=== PATIENT | female | born 1965 | race Caucasian/White ===

== ENCOUNTER 2016-08-17 09:19 | Inpatient (IN) | payer OTHER ==
[~2016-08-17] VITALS: Ht 165.1 cm; Wt 98.0 kg
[~2016-08-17 09:19] MED LIST: DIGO0.2570 PO; FLEC50TA15 PO; FURO20TA3 PO; LAC30LQ PO; LEV500T PO; SERT25TA84 PO; SPIR25TA88 PO; ZOLP10TA PO
[2016-08-17] MEDS ORDERED: FUROSEMIDE 40 MG/4 ML VIAL IV ONE (09:30)
[2016-08-17] MEDS ORDERED: LORazepam 2MG/ML-1ML VIAL IV ONE (09:30)
[2016-08-17] MEDS ORDERED: LEVOFLOXACIN 500MG 100 ML IV ONE (09:30)
[2016-08-17 09:39] VITALS: BP 122/63
[2016-08-17] MEDS ORDERED: ONDANSETRON HCL 4 MG/2 ML VIAL ONE (09:40)
[2016-08-17 09:49] LABS: Allen Test Modified; Base Excess -0.8 mmol/L (-2.0-2.0); Blood 02Sat 96.6 % (96-100); Blood COHb 0.3 % (0.5-1.5); Blood MetHb 0.3 % (0.0-1.5); HCO3 24.6 mmol/L (22-26.0); HHb 3.4 % (0.0-5.0); MODE MASK - BIPAP; PCO2 43.6 mmHg (35.0-45.0); PCO2(T) 43.6 mmHg (35.0-45.0); PIP 12; PO2 107.4 mmHg (80.0-100.0); PO2(T) 107.4 mmHg (80.0-100.0); Pressure Support 7; Sample Type Arterial; pH 7.369 (7.350-7.450)
[2016-08-17 09:53] LABS: Basophils # (auto) 0 uL; Basophils % (auto) 0.3 % (0.0-2.0); CONDITION Y; DEFINITIVE SEE PRINTOUT; Eosinophils # (auto) 0.2 uL; Eosinophils % (auto) 1.8 % (0.0-7.0); Hematocrit 28.5 % (36.0-46.0); Hemoglobin 9.4 g/dL (12.2-16.2); Lymphocytes # (auto) 1.9 uL; Lymphocytes % (auto) 19.3 % (10.0-50.0); Mean Corpuscular Hemoglobin 30.9 pg (28.0-32.0); Mean Corpuscular Hgb Conc. 33.1 g/dL (32.0-36.0); Mean Corpuscular Volume 93.5 fL (80.0-100.0); Mean Platelet Volume 7.7 fL (7.4-10.4); Monocytes # (auto) 0.3 uL; Monocytes % (auto) 2.8 % (0.0-12.0); Neutrophils # (auto) 7.5 uL; Neutrophils % (auto) 75.8 % (37.0-80.0); Platelet Count (auto) 170 10^3/uL (140-450); Red Cell Distribution Width 21.1 % (11.6-16.0); White Blood Cell 9.9 10^3/uL (4.4-10.8)
[2016-08-17 10:15] LABS: Albumin 2.6 g/dL (3.4-5.0); Anion Gap 17 (5-15); Aspartate Aminotransferase 93 U/L (15-37); BUN/Creatinine Ratio 8.6; Blood Urea Nitrogen 14 mg/dL (7-18); Calcium 7.3 mg/dL (8.5-10.1); Carbon Dioxide 23 mmol/L (21-32); Chloride 104 mmol/L (98-107); GFR African American 43 mL/min; GFR Non-African American 35 mL/min; Glucose 88 mg/dL (74-106); Magnesium 1.5 mg/dL (1.6-2.6); Potassium 3.6 mmol/L (3.5-5.1); Sodium 144 mmol/L (136-145)
[2016-08-17] MEDS ORDERED: SODIUM CHLORIDE 0.9% 500 ML IV ONE ×2 (10:15→11:00)
[2016-08-17 10:20] LABS: Alkaline Phosphatase 135 U/L (45-117); Bilirubin, Total 1.4 mg/dL (0.2-1.0)
[2016-08-17 10:21] LABS: B-Type Natriuretic Peptide 61.42 pg/mL (0-100); Temperature: 24.1 C (20.0-25.0)
[2016-08-17 10:23] LABS: REFLEX LACTIC ACID YES OR NO YES
[2016-08-17] MEDS ORDERED: MORPHINE SULF INJ 2 MG/ML SYRINGE 1ML IV PRN (11:00)
[2016-08-17] MEDS ORDERED: ALBUTEROL SULF 2.5 MG/0.5ML(0.5%) NEB SOLN NEB PRN (11:00)
[2016-08-17] MEDS ORDERED: NITROGLYCERIN 0.4 MG SL TAB SL PRN (11:00)
[2016-08-17] MEDS ORDERED: PROMETHAZINE HCL 25 MG/ML 1ML IV PRN (11:00)
[2016-08-17] MEDS ORDERED: CARVEDILOL 3.125 MG TAB PO ONE (11:15)
[2016-08-17] MEDS ORDERED: METOPROLOL TARTRATE 1MG/1ML-5ML VIAL IV ONE (11:15)
[2016-08-17 11:23] LABS: INR 1.23 (0.9-1.15)
[2016-08-17] MEDS ORDERED: DIGOXIN 0.25 MG TAB PO ONE (11:30)
[2016-08-17] MEDS: cefTRIAXone 1GM/50ML D5W 50 ML IV SCH (11:30)
[2016-08-17 11:43] LABS: Prothrombin Time 13.4 sec (9.37-12.3)
[2016-08-17] MEDS: ALBUTEROL SULF 2.5 MG/0.5ML(0.5%) NEB SOLN NEB SCH ×2 (12:05→18:00)
[2016-08-17] MEDS: IPRATROPIUM BROM 0.5 MG/2.5ML INH SOL NEB SCH ×2 (12:05→18:00)
[2016-08-17] MEDS: PANTOPRAZOLE 40 MG TAB PO SCH (12:35)
[2016-08-17] MEDS: LACTULOSE 20Gm/30ML SOLN PO SCH ×2 (12:35→18:00)
[2016-08-17] MEDS: SODIUM CHLORIDE 0.9% 1,000 ML IV SCH ×2 (12:52→21:03)
[2016-08-17] MEDS: MORPHINE SULF INJ 2 MG/ML SYRINGE 1ML IV PRN (12:55)
[2016-08-17] MEDS ORDERED: ACETAMINOPHEN 325 MG TAB PO ONE (12:59)
[2016-08-17] MEDS ORDERED: ACETAMINOPHEN 325 MG TAB PO PRN (13:00)
[2016-08-17] MEDS ORDERED: ASPirin 81 mg TAB PO ONE (14:15)
[2016-08-17] MEDS ORDERED: ENOXAPARIN SOD 80 MG/0.8ML SYRINGE SC ONE (14:15)
[2016-08-17] MEDS ORDERED: DIGOXIN (250MCG/ML) 2 ML AMPULE IV ONE (14:15)
[2016-08-17] MEDS ORDERED: ATORVASTATIN 20 MG TAB PO ONE (14:15)
[2016-08-17] MEDS: AZITHROMYCIN 500MG/D5W 250ML 250 ML IV SCH (14:18)
[2016-08-17] MEDS: CLINDAMYCIN 600MG IV 50 ML IV SCH ×2 (16:03→22:38)
[2016-08-17 16:18] VITALS: BP 90/49
[2016-08-17] MEDS ORDERED: PATIENTS OWN MEDICATION (Zolpidem Tartrate (Ambien) 1 TAB) PO SCH ×2 (18:00)
[2016-08-17] MEDS ORDERED: MAGNESIUM SULFATE 1GM/100ML 100 ML IV ONE (19:30)
[2016-08-17] MEDS: ATORVASTATIN 20 MG TAB PO SCH (22:00)
[2016-08-17] MEDS: CARVEDILOL 3.125 MG TAB PO SCH (22:00)
[2016-08-17] MEDS: ENOXAPARIN SOD 80 MG/0.8ML SYRINGE SC SCH (22:00)
[2016-08-17] MEDS: FLECAINIDE ACETATE 50 MG TAB PO SCH (22:00)
[2016-08-18] VITALS (15 sets, daily range): BP systolic 100–125; BP diastolic 48–74
[2016-08-18] MEDS: ALBUTEROL SULF 2.5 MG/0.5ML(0.5%) NEB SOLN NEB SCH ×4 (01:57→18:00)
[2016-08-18] MEDS: IPRATROPIUM BROM 0.5 MG/2.5ML INH SOL NEB SCH ×4 (01:57→18:00)
[2016-08-18 04:08] LABS: CONDITION Y; DEFINITIVE SEE PRINTOUT; Hematocrit 23.7 % (36.0-46.0); Mean Corpuscular Hemoglobin 31.4 pg (28.0-32.0); Mean Corpuscular Hgb Conc. 33.6 g/dL (32.0-36.0); Mean Corpuscular Volume 93.4 fL (80.0-100.0); Mean Platelet Volume 7.9 fL (7.4-10.4); Platelet Count (auto) 111 10^3/uL (140-450); SUSPECT SEE PRINTOUT; White Blood Cell 17.7 10^3/uL (4.4-10.8)
[2016-08-18 04:18] LABS: Red Cell Distribution Width 20.9 % (11.6-16.0)
[2016-08-18 04:19] LABS: Metamyelocytes % 0; Myelocytes % 0; Promyelocytes % 0; Reactive Lymphocytes 0
[2016-08-18 04:36] LABS: Albumin 2.2 g/dL (3.4-5.0); BUN/Creatinine Ratio 10.2; Bilirubin, Total 2.2 mg/dL (0.2-1.0); Calcium 7.3 mg/dL (8.5-10.1); Total Protein 4.9 g/dL (6.4-8.2)
[2016-08-18 05:00] LABS: B-Type Natriuretic Peptide 233.59 pg/mL (0-100)
[2016-08-18 05:04] LABS: Temperature: 22.5 C (20.0-25.0)
[2016-08-18 05:23] LABS: Anisocytosis Slight; Burr Cells FEW; Platelet Estimate Decreased
[2016-08-18] MEDS: CLINDAMYCIN 600MG IV 50 ML IV SCH ×3 (06:16→23:38)
[2016-08-18] MEDS: LACTULOSE 20Gm/30ML SOLN PO SCH ×4 (06:20→18:11)
[2016-08-18] MEDS: SODIUM CHLORIDE 0.9% 1,000 ML IV SCH ×2 (07:00→17:10)
[2016-08-18] MEDS: POTASSIUM CHL 10% (20 MEQ/15ML) ORAL SOLN PO SCH (07:44)
[2016-08-18] MEDS: MORPHINE SULF INJ 2 MG/ML SYRINGE 1ML IV PRN ×2 (08:25→14:17)
[2016-08-18] MEDS: cefTRIAXone 1GM/50ML D5W 50 ML IV SCH (08:25)
[2016-08-18] MEDS: CARVEDILOL 3.125 MG TAB PO SCH ×2 (10:00→23:38)
[2016-08-18] MEDS ORDERED: ASPirin 81 mg TAB PO SCH (10:00)
[2016-08-18] MEDS ORDERED: PATIENTS OWN MEDICATION (Sertraline Hcl (Zoloft) 1 TAB) PO SCH (10:00)
[2016-08-18] MEDS: DIGOXIN 0.25 MG TAB PO SCH (10:16)
[2016-08-18] MEDS: AZITHROMYCIN 500MG/D5W 250ML 250 ML IV SCH (10:16)
[2016-08-18] MEDS: SERTRALINE HCL 50 MG TAB PO SCH (10:16)
[2016-08-18] MEDS: FLECAINIDE ACETATE 50 MG TAB PO SCH (10:16)
[2016-08-18] MEDS: ENOXAPARIN SOD 80 MG/0.8ML SYRINGE SC SCH (10:16)
[2016-08-18] MEDS: PANTOPRAZOLE 40 MG TAB PO SCH (10:16)
[2016-08-18 12:51] LABS: Hematocrit 23.1 % (36.0-46.0); Hemoglobin 7.8 g/dL (12.2-16.2)
[2016-08-18 12:55] LABS: INR 1.64 (0.9-1.15); Partial Thromboplastin Time 38.9 sec (22.64-33.71)
[2016-08-18 21:01] LABS: Hematocrit 28.8 % (36.0-46.0); Hemoglobin 9.6 g/dL (12.2-16.2)
[2016-08-18] MEDS: ATORVASTATIN 20 MG TAB PO SCH (23:39)
[2016-08-19] MEDS: FLECAINIDE ACETATE 50 MG TAB PO SCH ×3 (00:03→21:07)
[2016-08-19] MEDS: LACTULOSE 20Gm/30ML SOLN PO SCH ×4 (00:07→18:00)
[2016-08-19 01:00] LABS: Hematocrit 27.4 % (36.0-46.0)
[2016-08-19] MEDS: MORPHINE SULF INJ 2 MG/ML SYRINGE 1ML IV PRN ×2 (02:34→21:11)
[2016-08-19] MEDS: LORazepam 0.5 MG TAB PO PRN (02:38)
[2016-08-19 03:31] LABS: Basophils # (auto) 0 uL; Basophils % (auto) 0.3 % (0.0-2.0); CONDITION Y; DEFINITIVE SEE PRINTOUT; Eosinophils # (auto) 0.2 uL; Eosinophils % (auto) 1.2 % (0.0-7.0); Hematocrit 27.3 % (36.0-46.0); Hemoglobin 9.1 g/dL (12.2-16.2); Lymphocytes # (auto) 1.8 uL; Lymphocytes % (auto) 11.1 % (10.0-50.0); Mean Corpuscular Hemoglobin 31.2 pg (28.0-32.0); Mean Corpuscular Hgb Conc. 33.5 g/dL (32.0-36.0); Mean Corpuscular Volume 93.1 fL (80.0-100.0); Mean Platelet Volume 8.1 fL (7.4-10.4); Monocytes # (auto) 0.7 uL; Monocytes % (auto) 4.7 % (0.0-12.0); Neutrophils # (auto) 13.1 uL; Neutrophils % (auto) 82.7 % (37.0-80.0); Platelet Count (auto) 124 10^3/uL (140-450); Red Cell Distribution Width 19.9 % (11.6-16.0); White Blood Cell 15.9 10^3/uL (4.4-10.8)
[2016-08-19 03:46] LABS: INR 1.36 (0.9-1.15); Partial Thromboplastin Time 36.1 sec (22.64-33.71)
[2016-08-19 03:47] LABS: Prothrombin Time 14.9 sec (9.37-12.3)
[2016-08-19 03:57] LABS: Albumin 2.3 g/dL (3.4-5.0); BUN/Creatinine Ratio 11.9; Bilirubin, Total 2.3 mg/dL (0.2-1.0); Calcium 7.2 mg/dL (8.5-10.1); Potassium 3.4 mmol/L (3.5-5.1)
[2016-08-19 04:00] VITALS: BP 123/72
[2016-08-19 04:10] VITALS: BP 123/72
[2016-08-19 04:46] LABS: B-Type Natriuretic Peptide 285.05 pg/mL (0-100)
[2016-08-19 04:55] LABS: Temperature: 22.9 C (20.0-25.0)
[2016-08-19] MEDS: ZOLPIDEM TARTRATE 5 MG TAB PO PRN ×2 (05:14→21:10)
[2016-08-19] MEDS: CLINDAMYCIN 600MG IV 50 ML IV SCH ×3 (06:00→21:11)
[2016-08-19] MEDS: SODIUM CHLORIDE 0.9% 1,000 ML IV SCH (06:15)
[2016-08-19] MEDS: IPRATROPIUM BROM 0.5 MG/2.5ML INH SOL NEB SCH ×3 (07:26→18:51)
[2016-08-19] MEDS: ALBUTEROL SULF 2.5 MG/0.5ML(0.5%) NEB SOLN NEB SCH ×3 (07:26→18:51)
[2016-08-19 12:00] VITALS: BP 101/61
[2016-08-19] MEDS: cefTRIAXone 1GM/50ML D5W 50 ML IV SCH (12:23)
[2016-08-19] MEDS: SERTRALINE HCL 50 MG TAB PO SCH (12:24)
[2016-08-19] MEDS: PANTOPRAZOLE 40 MG TAB PO SCH (12:25)
[2016-08-19] MEDS: DIGOXIN 0.25 MG TAB PO SCH (12:25)
[2016-08-19] MEDS: CARVEDILOL 3.125 MG TAB PO SCH ×2 (12:25→21:09)
[2016-08-19] MEDS: AZITHROMYCIN 500MG/D5W 250ML 250 ML IV SCH (12:26)
[2016-08-19] MEDS: POTASSIUM CHL 10% (20 MEQ/15ML) ORAL SOLN PO SCH (12:26)
[2016-08-19 16:00] VITALS: BP 106/62
[2016-08-19 20:00] VITALS: BP 94/54
[2016-08-19] MEDS: ATORVASTATIN 20 MG TAB PO SCH (21:07)
[2016-08-20] VITALS (7 sets, daily range): BP systolic 91–123; BP diastolic 51–87
[2016-08-20] MEDS: IPRATROPIUM BROM 0.5 MG/2.5ML INH SOL NEB SCH ×4 (00:08→18:49)
[2016-08-20] MEDS: ALBUTEROL SULF 2.5 MG/0.5ML(0.5%) NEB SOLN NEB SCH ×4 (00:08→18:49)
[2016-08-20] MEDS: MORPHINE SULF INJ 2 MG/ML SYRINGE 1ML IV PRN ×4 (03:46→18:42)
[2016-08-20 04:55] LABS: Basophils # (auto) 0 uL; Basophils % (auto) 0.3 % (0.0-2.0); CONDITION Y; DEFINITIVE SEE PRINTOUT; Eosinophils # (auto) 0.1 uL; Eosinophils % (auto) 1.3 % (0.0-7.0); Hematocrit 26.9 % (36.0-46.0); Hemoglobin 8.9 g/dL (12.2-16.2); Lymphocytes # (auto) 1.3 uL; Lymphocytes % (auto) 13.7 % (10.0-50.0); Mean Corpuscular Hgb Conc. 33.1 g/dL (32.0-36.0); Mean Corpuscular Volume 93.5 fL (80.0-100.0); Mean Platelet Volume 8.2 fL (7.4-10.4); Monocytes # (auto) 0.6 uL; Monocytes % (auto) 6.5 % (0.0-12.0); Neutrophils # (auto) 7.7 uL; Neutrophils % (auto) 78.2 % (37.0-80.0); Platelet Count (auto) 124 10^3/uL (140-450); Red Cell Distribution Width 19.9 % (11.6-16.0); White Blood Cell 9.8 10^3/uL (4.4-10.8)
[2016-08-20 05:16] LABS: Albumin 2.2 g/dL (3.4-5.0); BUN/Creatinine Ratio 12.2; Calcium 7.6 mg/dL (8.5-10.1)
[2016-08-20 05:19] LABS: Bilirubin, Total 1.2 mg/dL (0.2-1.0); Total Protein 5.2 g/dL (6.4-8.2)
[2016-08-20 05:32] LABS: B-Type Natriuretic Peptide 259.2 pg/mL (0-100)
[2016-08-20 05:36] LABS: Temperature: 22.9 C (20.0-25.0)
[2016-08-20] MEDS: CLINDAMYCIN 600MG IV 50 ML IV SCH (05:50)
[2016-08-20] MEDS: LACTULOSE 20Gm/30ML SOLN PO SCH ×4 (06:00→17:29)
[2016-08-20] MEDS: LORazepam 0.5 MG TAB PO PRN (09:38)
[2016-08-20] MEDS: cefTRIAXone 1GM/50ML D5W 50 ML IV SCH (09:38)
[2016-08-20] MEDS: CARVEDILOL 3.125 MG TAB PO SCH ×2 (09:43→21:49)
[2016-08-20] MEDS: POTASSIUM CHL 10% (20 MEQ/15ML) ORAL SOLN PO SCH (09:51)
[2016-08-20] MEDS: FLECAINIDE ACETATE 50 MG TAB PO SCH ×2 (09:51→21:49)
[2016-08-20] MEDS: DIGOXIN 0.25 MG TAB PO SCH (09:51)
[2016-08-20] MEDS: PANTOPRAZOLE 40 MG TAB PO SCH ×2 (09:51→21:49)
[2016-08-20] MEDS: SERTRALINE HCL 50 MG TAB PO SCH (09:56)
[2016-08-20] MEDS: AZITHROMYCIN 500MG/D5W 250ML 250 ML IV SCH (10:23)
[2016-08-20] MEDS: ALBUMIN 25% 100 ML IV SCH ×2 (12:56→14:13)
[2016-08-20] MEDS ORDERED: BUMETANIDE (0.25MG/ML) 4 ML VIAL IV ONE (14:15)
[2016-08-20] MEDS: RIFAXIMIN 550 MG TAB PO SCH ×2 (14:55→22:00)
[2016-08-20] MEDS: ATORVASTATIN 20 MG TAB PO SCH (21:49)
[2016-08-21] VITALS (11 sets, daily range): BP systolic 92–112; BP diastolic 49–65
[2016-08-21] MEDS: ALBUTEROL SULF 2.5 MG/0.5ML(0.5%) NEB SOLN NEB SCH ×4 (00:36→19:36)
[2016-08-21] MEDS: IPRATROPIUM BROM 0.5 MG/2.5ML INH SOL NEB SCH ×4 (00:37→19:36)
[2016-08-21] MEDS: ZOLPIDEM TARTRATE 5 MG TAB PO PRN (02:34)
[2016-08-21 05:25] LABS: Basophils # (auto) 0 uL; Basophils % (auto) 0.3 % (0.0-2.0); CONDITION Y; DEFINITIVE SEE PRINTOUT; Eosinophils # (auto) 0.1 uL; Eosinophils % (auto) 2.4 % (0.0-7.0); Hematocrit 25.1 % (36.0-46.0); Hemoglobin 8.5 g/dL (12.2-16.2); Lymphocytes # (auto) 1.2 uL; Lymphocytes % (auto) 18.8 % (10.0-50.0); Mean Corpuscular Hemoglobin 31.5 pg (28.0-32.0); Mean Corpuscular Hgb Conc. 33.7 g/dL (32.0-36.0); Mean Corpuscular Volume 93.4 fL (80.0-100.0); Mean Platelet Volume 7.6 fL (7.4-10.4); Monocytes # (auto) 0.5 uL; Monocytes % (auto) 8.5 % (0.0-12.0); Neutrophils # (auto) 4.4 uL; Platelet Count (auto) 115 10^3/uL (140-450); White Blood Cell 6.3 10^3/uL (4.4-10.8)
[2016-08-21 05:27] LABS: Red Cell Distribution Width 20.4 % (11.6-16.0)
[2016-08-21 05:45] LABS: Calcium 7.8 mg/dL (8.5-10.1); Potassium 3.3 mmol/L (3.5-5.1)
[2016-08-21] MEDS: LACTULOSE 20Gm/30ML SOLN PO SCH ×4 (06:00→17:28)
[2016-08-21 06:45] LABS: Platelet Estimate Decreased
[2016-08-21 06:47] LABS: Anisocytosis Slight; Schistocytes FEW
[2016-08-21 06:48] LABS: Ovalocytes FEW
[2016-08-21] MEDS: cefTRIAXone 1GM/50ML D5W 50 ML IV SCH (09:22)
[2016-08-21] MEDS: AZITHROMYCIN 500MG/D5W 250ML 250 ML IV SCH (10:00)
[2016-08-21] MEDS: CARVEDILOL 3.125 MG TAB PO SCH ×2 (10:00→22:35)
[2016-08-21] MEDS ORDERED: POTASSIUM CHL 20 Meq TABLET PO ONE (10:30)
[2016-08-21] MEDS: FLECAINIDE ACETATE 50 MG TAB PO SCH ×2 (10:31→22:35)
[2016-08-21] MEDS: PANTOPRAZOLE 40 MG TAB PO SCH ×2 (10:33→22:35)
[2016-08-21] MEDS: DIGOXIN 0.25 MG TAB PO SCH (10:33)
[2016-08-21] MEDS: SERTRALINE HCL 50 MG TAB PO SCH (10:34)
[2016-08-21] MEDS: RIFAXIMIN 550 MG TAB PO SCH ×2 (10:35→22:35)
[2016-08-21] MEDS: LORazepam 0.5 MG TAB PO PRN ×2 (12:16→22:51)
[2016-08-21] MEDS: traMADol HCL 50 MG TAB PO PRN (17:29)
[2016-08-21] MEDS: ATORVASTATIN 20 MG TAB PO SCH (22:35)
[2016-08-22] VITALS (8 sets, daily range): BP systolic 100–131; BP diastolic 56–74
[2016-08-22] MEDS: ALBUTEROL SULF 2.5 MG/0.5ML(0.5%) NEB SOLN NEB SCH ×4 (00:27→20:19)
[2016-08-22] MEDS: IPRATROPIUM BROM 0.5 MG/2.5ML INH SOL NEB SCH ×4 (00:27→20:19)
[2016-08-22] MEDS: traMADol HCL 50 MG TAB PO PRN ×3 (02:15→18:30)
[2016-08-22] MEDS: ZOLPIDEM TARTRATE 5 MG TAB PO PRN (02:15)
[2016-08-22 05:38] LABS: Basophils # (auto) 0 uL; Basophils % (auto) 0.6 % (0.0-2.0); CONDITION Y; DEFINITIVE SEE PRINTOUT; Eosinophils # (auto) 0.2 uL; Eosinophils % (auto) 2.9 % (0.0-7.0); Hematocrit 27.1 % (36.0-46.0); Lymphocytes # (auto) 1.3 uL; Mean Corpuscular Hemoglobin 30.8 pg (28.0-32.0); Mean Corpuscular Hgb Conc. 33.3 g/dL (32.0-36.0); Mean Corpuscular Volume 92.4 fL (80.0-100.0); Mean Platelet Volume 7.7 fL (7.4-10.4); Monocytes # (auto) 0.6 uL; Monocytes % (auto) 9.8 % (0.0-12.0); Neutrophils # (auto) 4.2 uL; Neutrophils % (auto) 66.7 % (37.0-80.0); Platelet Count (auto) 129 10^3/uL (140-450); White Blood Cell 6.3 10^3/uL (4.4-10.8)
[2016-08-22 05:55] LABS: Red Cell Distribution Width 20.9 % (11.6-16.0)
[2016-08-22 05:56] LABS: Albumin 2.5 g/dL (3.4-5.0); BUN/Creatinine Ratio 13.3; Calcium 7.7 mg/dL (8.5-10.1); Potassium 3.4 mmol/L (3.5-5.1)
[2016-08-22 05:59] LABS: Bilirubin, Total 1.2 mg/dL (0.2-1.0); Total Protein 5.2 g/dL (6.4-8.2)
[2016-08-22] MEDS: LACTULOSE 20Gm/30ML SOLN PO SCH ×4 (06:11→18:29)
[2016-08-22] MEDS: LORazepam 0.5 MG TAB PO PRN (06:13)
[2016-08-22 07:00] LABS: Platelet Estimate Decreased
[2016-08-22 07:01] LABS: Anisocytosis Slight; Ovalocytes FEW; Schistocytes FEW
[2016-08-22] MEDS ORDERED: ALBUMIN 25% 100 ML IV ONE (09:15)
[2016-08-22] MEDS ORDERED: BUMETANIDE 1 MG TAB PO SCH (10:00)
[2016-08-22] MEDS: FLECAINIDE ACETATE 50 MG TAB PO SCH ×2 (10:00→22:36)
[2016-08-22] MEDS: CARVEDILOL 3.125 MG TAB PO SCH ×2 (10:00→22:37)
[2016-08-22] MEDS: cefTRIAXone 1GM/50ML D5W 50 ML IV SCH (10:11)
[2016-08-22] MEDS: AZITHROMYCIN 500MG/D5W 250ML 250 ML IV SCH (10:38)
[2016-08-22] MEDS: POTASSIUM CHL 20 Meq TABLET PO SCH (10:40)
[2016-08-22] MEDS: DIGOXIN 0.25 MG TAB PO SCH (10:40)
[2016-08-22] MEDS: PANTOPRAZOLE 40 MG TAB PO SCH ×2 (10:41→22:36)
[2016-08-22] MEDS: RIFAXIMIN 550 MG TAB PO SCH ×2 (10:42→22:38)
[2016-08-22] MEDS: SERTRALINE HCL 50 MG TAB PO SCH (10:42)
[2016-08-22] MEDS ORDERED: MORPHINE SULFATE 4 MG/ML SYRG IV PRN (14:05)
[2016-08-22] MEDS: SPIRONOLACTONE 25 MG TAB PO SCH (18:30)
[2016-08-22] MEDS: ATORVASTATIN 20 MG TAB PO SCH (22:36)
[2016-08-22] MEDS: MORPHINE SULFATE 4 MG/ML SYRG IV PRN (22:46)
[2016-08-23 05:57] VITALS: BP 117/65
[2016-08-23] MEDS: LACTULOSE 20Gm/30ML SOLN PO SCH ×4 (05:58→18:17)
[2016-08-23] MEDS: SPIRONOLACTONE 25 MG TAB PO SCH ×2 (05:58→18:17)
[2016-08-23 06:18] LABS: BUN/Creatinine Ratio 11.3; Potassium 3.4 mmol/L (3.5-5.1)
[2016-08-23] MEDS: IPRATROPIUM BROM 0.5 MG/2.5ML INH SOL NEB SCH ×3 (06:50→19:45)
[2016-08-23] MEDS: ALBUTEROL SULF 2.5 MG/0.5ML(0.5%) NEB SOLN NEB SCH ×3 (06:50→19:45)
[2016-08-23] MEDS ORDERED: BUMETANIDE (0.25MG/ML) 4 ML VIAL IV ONE (09:15)
[2016-08-23] MEDS: AZITHROMYCIN 500MG/D5W 250ML 250 ML IV SCH (09:52)
[2016-08-23] MEDS: cefTRIAXone 1GM/50ML D5W 50 ML IV SCH (09:52)
[2016-08-23] MEDS: POTASSIUM CHL 20 Meq TABLET PO SCH (09:52)
[2016-08-23] MEDS: DIGOXIN 0.25 MG TAB PO SCH (09:53)
[2016-08-23] MEDS: SERTRALINE HCL 50 MG TAB PO SCH (09:53)
[2016-08-23] MEDS: PANTOPRAZOLE 40 MG TAB PO SCH ×2 (09:53→22:13)
[2016-08-23] MEDS: FLECAINIDE ACETATE 50 MG TAB PO SCH ×2 (09:53→22:13)
[2016-08-23] MEDS: CARVEDILOL 3.125 MG TAB PO SCH ×2 (09:53→22:12)
[2016-08-23] MEDS ORDERED: BUME1TAB28 PO (11:48)
[2016-08-23 12:17] VITALS: BP 118/69
[2016-08-23] MEDS: RIFAXIMIN 550 MG TAB PO SCH ×2 (13:08→22:13)
[2016-08-23] MEDS ORDERED: POTASSIUM CHL 20 Meq TABLET PO ONE (14:45)
[2016-08-23 17:11] VITALS: BP 103/70
[2016-08-23 22:00] VITALS: BP 116/69
[2016-08-23] MEDS: ZOLPIDEM TARTRATE 5 MG TAB PO PRN (22:13)
[2016-08-23] MEDS: traMADol HCL 50 MG TAB PO PRN (22:13)
[2016-08-23] MEDS: ATORVASTATIN 20 MG TAB PO SCH (22:13)
[2016-08-24 02:35] VITALS: BP 116/69
[2016-08-24] MEDS: traMADol HCL 50 MG TAB PO PRN ×2 (04:16→16:17)
[2016-08-24 05:51] VITALS: BP 111/60
[2016-08-24] MEDS: LACTULOSE 20Gm/30ML SOLN PO SCH ×4 (06:38→18:02)
[2016-08-24] MEDS: SPIRONOLACTONE 25 MG TAB PO SCH ×2 (06:39→18:03)
[2016-08-24] MEDS: ALBUTEROL SULF 2.5 MG/0.5ML(0.5%) NEB SOLN NEB SCH ×3 (06:54→19:46)
[2016-08-24] MEDS: IPRATROPIUM BROM 0.5 MG/2.5ML INH SOL NEB SCH ×3 (06:54→19:46)
[2016-08-24 07:51] LABS: BUN/Creatinine Ratio 10.1; Calcium 8.1 mg/dL (8.5-10.1); Potassium 3.4 mmol/L (3.5-5.1)
[2016-08-24 09:18] VITALS: BP 112/63
[2016-08-24] MEDS: cefTRIAXone 1GM/50ML D5W 50 ML IV SCH (09:39)
[2016-08-24] MEDS: CARVEDILOL 3.125 MG TAB PO SCH ×2 (09:39→21:40)
[2016-08-24] MEDS: AZITHROMYCIN 500MG/D5W 250ML 250 ML IV SCH (09:39)
[2016-08-24] MEDS: POTASSIUM CHL 20 Meq TABLET PO SCH (09:40)
[2016-08-24] MEDS: DIGOXIN 0.25 MG TAB PO SCH (09:40)
[2016-08-24] MEDS: PANTOPRAZOLE 40 MG TAB PO SCH ×2 (09:41→21:37)
[2016-08-24] MEDS: FLECAINIDE ACETATE 50 MG TAB PO SCH ×2 (09:42→21:37)
[2016-08-24] MEDS: SERTRALINE HCL 50 MG TAB PO SCH (09:43)
[2016-08-24] MEDS: MORPHINE SULFATE 4 MG/ML SYRG IV PRN (11:19)
[2016-08-24] MEDS: RIFAXIMIN 550 MG TAB PO SCH ×2 (11:43→21:37)
[2016-08-24 13:24] VITALS: BP 103/60
[2016-08-24] MEDS ORDERED: BUMETANIDE (0.25MG/ML) 4 ML VIAL IV ONE (14:15)
[2016-08-24 18:00] VITALS: BP 113/68
[2016-08-24 21:19] VITALS: BP 105/63
[2016-08-24] MEDS: ATORVASTATIN 20 MG TAB PO SCH (21:37)
[2016-08-24] MEDS: ZOLPIDEM TARTRATE 5 MG TAB PO PRN (21:37)
[2016-08-25] MEDS: IPRATROPIUM BROM 0.5 MG/2.5ML INH SOL NEB SCH ×4 (00:06→18:48)
[2016-08-25] MEDS: ALBUTEROL SULF 2.5 MG/0.5ML(0.5%) NEB SOLN NEB SCH ×4 (00:06→18:48)
[2016-08-25] MEDS: MORPHINE SULFATE 4 MG/ML SYRG IV PRN ×3 (00:48→16:09)
[2016-08-25] MEDS: traMADol HCL 50 MG TAB PO PRN ×2 (03:49→22:57)
[2016-08-25 05:00] VITALS: BP 103/56
[2016-08-25] MEDS: LACTULOSE 20Gm/30ML SOLN PO SCH ×4 (05:26→17:49)
[2016-08-25] MEDS: SPIRONOLACTONE 25 MG TAB PO SCH ×2 (05:26→17:49)
[2016-08-25 06:49] LABS: Basophils # (auto) 0 uL; Basophils % (auto) 0.4 % (0.0-2.0); CONDITION Y; DEFINITIVE SEE PRINTOUT; Eosinophils # (auto) 0.2 uL; Eosinophils % (auto) 3.6 % (0.0-7.0); Hematocrit 27.6 % (36.0-46.0); Hemoglobin 9.5 g/dL (12.2-16.2); Lymphocytes # (auto) 1.7 uL; Mean Corpuscular Hemoglobin 31.5 pg (28.0-32.0); Mean Corpuscular Hgb Conc. 34.4 g/dL (32.0-36.0); Mean Corpuscular Volume 91.8 fL (80.0-100.0); Mean Platelet Volume 7.4 fL (7.4-10.4); Monocytes # (auto) 0.6 uL; Monocytes % (auto) 8.7 % (0.0-12.0); Neutrophils # (auto) 3.9 uL; Neutrophils % (auto) 60.3 % (37.0-80.0); Platelet Count (auto) 155 10^3/uL (140-450); Red Cell Distribution Width 20.7 % (11.6-16.0); White Blood Cell 6.5 10^3/uL (4.4-10.8)
[2016-08-25 07:05] LABS: BUN/Creatinine Ratio 8.7; Calcium 7.8 mg/dL (8.5-10.1); Magnesium 1.3 mg/dL (1.6-2.6); Potassium 3.4 mmol/L (3.5-5.1)
[2016-08-25] MEDS ORDERED: POTASSIUM CHL 10 Meq TABLET PO ONE (07:30)
[2016-08-25] MEDS ORDERED: BUMETANIDE (0.25MG/ML) 4 ML VIAL IV ONE (07:30)
[2016-08-25 09:00] VITALS: BP_SYST 101; BP_SYST 92; BP_DIAS 58; BP_DIAS 59
[2016-08-25] MEDS: CARVEDILOL 3.125 MG TAB PO SCH ×2 (10:00→22:26)
[2016-08-25] MEDS: AZITHROMYCIN 500MG/D5W 250ML 250 ML IV SCH (10:00)
[2016-08-25] MEDS: cefTRIAXone 1GM/50ML D5W 50 ML IV SCH (10:21)
[2016-08-25] MEDS: POTASSIUM CHL 20 Meq TABLET PO SCH (10:24)
[2016-08-25] MEDS: SERTRALINE HCL 50 MG TAB PO SCH (10:25)
[2016-08-25] MEDS: FLECAINIDE ACETATE 50 MG TAB PO SCH ×2 (10:25→22:29)
[2016-08-25] MEDS: PANTOPRAZOLE 40 MG TAB PO SCH ×2 (10:25→22:26)
[2016-08-25] MEDS: DIGOXIN 0.25 MG TAB PO SCH (10:25)
[2016-08-25] MEDS: RIFAXIMIN 550 MG TAB PO SCH ×2 (11:47→22:29)
[2016-08-25 13:38] VITALS: BP 121/70
[2016-08-25 16:32] VITALS: BP 111/68
[2016-08-25 22:00] VITALS: BP 108/59
[2016-08-25] MEDS: ATORVASTATIN 20 MG TAB PO SCH (22:26)
[2016-08-26] MEDS: MORPHINE SULFATE 4 MG/ML SYRG IV PRN ×4 (00:28→15:13)
[2016-08-26] MEDS: ALBUTEROL SULF 2.5 MG/0.5ML(0.5%) NEB SOLN NEB SCH ×4 (00:40→19:52)
[2016-08-26] MEDS: LORazepam 0.5 MG TAB PO PRN (01:16)
[2016-08-26 05:00] VITALS: BP 105/56
[2016-08-26] MEDS: SPIRONOLACTONE 25 MG TAB PO SCH (05:57)
[2016-08-26] MEDS: LACTULOSE 20Gm/30ML SOLN PO SCH ×4 (05:57→17:51)
[2016-08-26] MEDS: IPRATROPIUM BROM 0.5 MG/2.5ML INH SOL NEB SCH ×4 (05:58→19:52)
[2016-08-26 06:38] LABS: Basophils # (auto) 0 uL; Basophils % (auto) 0.3 % (0.0-2.0); CONDITION Y; DEFINITIVE SEE PRINTOUT; Eosinophils # (auto) 0.2 uL; Eosinophils % (auto) 2.8 % (0.0-7.0); Hemoglobin 9.6 g/dL (12.2-16.2); Lymphocytes # (auto) 1.9 uL; Mean Corpuscular Hemoglobin 31.8 pg (28.0-32.0); Mean Corpuscular Hgb Conc. 34.2 g/dL (32.0-36.0); Mean Corpuscular Volume 93.2 fL (80.0-100.0); Mean Platelet Volume 7.2 fL (7.4-10.4); Monocytes # (auto) 0.5 uL; Monocytes % (auto) 6.1 % (0.0-12.0); Neutrophils # (auto) 5.5 uL; Neutrophils % (auto) 67.8 % (37.0-80.0); Platelet Count (auto) 159 10^3/uL (140-450); White Blood Cell 8.1 10^3/uL (4.4-10.8)
[2016-08-26 06:47] LABS: Red Cell Distribution Width 20.2 % (11.6-16.0)
[2016-08-26 06:54] LABS: BUN/Creatinine Ratio 6.5; Calcium 7.5 mg/dL (8.5-10.1); Potassium 3.6 mmol/L (3.5-5.1)
[2016-08-26 07:29] LABS: Platelet Estimate Adequate
[2016-08-26 07:30] LABS: Anisocytosis Slight
[2016-08-26 09:00] VITALS: BP 106/59
[2016-08-26] MEDS: cefTRIAXone 1GM/50ML D5W 50 ML IV SCH (09:05)
[2016-08-26] MEDS: CARVEDILOL 3.125 MG TAB PO SCH ×2 (09:09→21:48)
[2016-08-26] MEDS: POTASSIUM CHL 20 Meq TABLET PO SCH (09:09)
[2016-08-26] MEDS: FLECAINIDE ACETATE 50 MG TAB PO SCH ×2 (09:09→21:47)
[2016-08-26] MEDS: SERTRALINE HCL 50 MG TAB PO SCH (09:10)
[2016-08-26] MEDS: DIGOXIN 0.25 MG TAB PO SCH (09:10)
[2016-08-26] MEDS: RIFAXIMIN 550 MG TAB PO SCH ×2 (09:11→21:47)
[2016-08-26] MEDS: PANTOPRAZOLE 40 MG TAB PO SCH ×2 (09:11→21:47)
[2016-08-26] MEDS ORDERED: BUMETANIDE (0.25MG/ML) 4 ML VIAL IV ONE (11:45)
[2016-08-26] MEDS ORDERED: POTASSIUM CHL 10 Meq TABLET PO ONE (11:45)
[2016-08-26] MEDS: LEVOFLOXACIN 250 MG TAB PO SCH (12:58)
[2016-08-26] MEDS: MAGNESIUM SULFATE 1GM/100ML 100 ML IV SCH ×2 (12:58→15:13)
[2016-08-26 13:00] VITALS: BP 102/58
[2016-08-26] MEDS ORDERED: LIDOCAINE VISCOUS 2% 15ML UD MT PRN (15:30)
[2016-08-26] MEDS ORDERED: LIDOCAINE VISCOUS 2% 15ML UD PO ONE (15:30)
[2016-08-26 17:00] VITALS: BP 110/65
[2016-08-26] MEDS: ATORVASTATIN 20 MG TAB PO SCH (21:48)
[2016-08-26] MEDS: traMADol HCL 50 MG TAB PO PRN (21:48)
[2016-08-26 22:00] VITALS: BP 104/57
[2016-08-27] MEDS: LACTULOSE 20Gm/30ML SOLN PO SCH ×6 (00:07→23:22)
[2016-08-27] MEDS: ZOLPIDEM TARTRATE 5 MG TAB PO PRN ×2 (00:34→23:22)
[2016-08-27] MEDS: IPRATROPIUM BROM 0.5 MG/2.5ML INH SOL NEB SCH ×4 (01:45→19:27)
[2016-08-27] MEDS: ALBUTEROL SULF 2.5 MG/0.5ML(0.5%) NEB SOLN NEB SCH ×4 (01:45→19:27)
[2016-08-27] MEDS: MORPHINE SULFATE 4 MG/ML SYRG IV PRN ×4 (04:26→22:28)
[2016-08-27 05:00] VITALS: BP 108/54
[2016-08-27] MEDS: LORazepam 0.5 MG TAB PO PRN (06:58)
[2016-08-27 07:29] LABS: Basophils # (auto) 0 uL; Basophils % (auto) 0.3 % (0.0-2.0); CONDITION Y; DEFINITIVE SEE PRINTOUT; Eosinophils # (auto) 0.3 uL; Hematocrit 31.2 % (36.0-46.0); Hemoglobin 10.5 g/dL (12.2-16.2); Lymphocytes # (auto) 1.9 uL; Lymphocytes % (auto) 21.2 % (10.0-50.0); Mean Corpuscular Hemoglobin 31.4 pg (28.0-32.0); Mean Corpuscular Hgb Conc. 33.6 g/dL (32.0-36.0); Mean Corpuscular Volume 93.4 fL (80.0-100.0); Mean Platelet Volume 7.5 fL (7.4-10.4); Monocytes # (auto) 0.5 uL; Monocytes % (auto) 5.6 % (0.0-12.0); Neutrophils # (auto) 6.3 uL; Neutrophils % (auto) 69.9 % (37.0-80.0); Platelet Count (auto) 188 10^3/uL (140-450)
[2016-08-27] MEDS ORDERED: ATOR20TA50 PO (07:42)
[2016-08-27 07:43] LABS: Red Cell Distribution Width 20.8 % (11.6-16.0)
[2016-08-27] MEDS ORDERED: PANT40T PO (07:43)
[2016-08-27 07:49] LABS: Albumin 2.9 g/dL (3.4-5.0); BUN/Creatinine Ratio 6.6; Bilirubin, Total 1.1 mg/dL (0.2-1.0); Calcium 7.8 mg/dL (8.5-10.1); Magnesium 1.6 mg/dL (1.6-2.6); Potassium 3.8 mmol/L (3.5-5.1); Total Protein 5.8 g/dL (6.4-8.2)
[2016-08-27 08:08] LABS: Anisocytosis Slight; Platelet Estimate Adequate
[2016-08-27 09:00] VITALS: BP 107/60
[2016-08-27] MEDS ORDERED: BUMETANIDE (0.25 MG/ML) INJ 10ML IV ONE (09:45)
[2016-08-27] MEDS ORDERED: POTASSIUM CHL 20 Meq TABLET PO ONE (09:45)
[2016-08-27] MEDS: LEVOFLOXACIN 250 MG TAB PO SCH (10:24)
[2016-08-27] MEDS: SPIRONOLACTONE 25 MG TAB PO SCH (10:24)
[2016-08-27] MEDS: PANTOPRAZOLE 40 MG TAB PO SCH ×2 (10:25→22:19)
[2016-08-27] MEDS: MULTIPLE VITAMINS W/ MINERALS TAB PO SCH (10:25)
[2016-08-27] MEDS: FLECAINIDE ACETATE 50 MG TAB PO SCH ×2 (10:25→22:19)
[2016-08-27] MEDS: CARVEDILOL 3.125 MG TAB PO SCH ×2 (10:25→22:18)
[2016-08-27] MEDS: DIGOXIN 0.25 MG TAB PO SCH (10:27)
[2016-08-27] MEDS: SERTRALINE HCL 50 MG TAB PO SCH (10:27)
[2016-08-27] MEDS: RIFAXIMIN 550 MG TAB PO SCH ×2 (11:15→22:19)
[2016-08-27 12:57] VITALS: BP 107/61
[2016-08-27] MEDS: traMADol HCL 50 MG TAB PO PRN (15:36)
[2016-08-27 17:00] VITALS: BP 107/55
[2016-08-27 22:00] VITALS: BP 122/69
[2016-08-27] MEDS: ATORVASTATIN 20 MG TAB PO SCH (22:19)
[2016-08-28] MEDS: ALBUTEROL SULF 2.5 MG/0.5ML(0.5%) NEB SOLN NEB SCH ×4 (01:00→18:57)
[2016-08-28] MEDS: IPRATROPIUM BROM 0.5 MG/2.5ML INH SOL NEB SCH ×4 (01:00→18:56)
[2016-08-28] MEDS: LORazepam 0.5 MG TAB PO PRN (02:45)
[2016-08-28] MEDS: MORPHINE SULFATE 4 MG/ML SYRG IV PRN ×2 (04:14→23:38)
[2016-08-28 05:00] VITALS: BP_SYST 102; BP_SYST 136; BP_DIAS 57; BP_DIAS 85
[2016-08-28] MEDS: LACTULOSE 20Gm/30ML SOLN PO SCH ×4 (06:08→23:38)
[2016-08-28] MEDS: traMADol HCL 50 MG TAB PO PRN ×3 (06:36→21:33)
[2016-08-28 07:27] LABS: Albumin 2.6 g/dL (3.4-5.0); BUN/Creatinine Ratio 6.1; Calcium 7.7 mg/dL (8.5-10.1); Magnesium 1.5 mg/dL (1.6-2.6); Potassium 3.8 mmol/L (3.5-5.1)
[2016-08-28 08:44] VITALS: BP 106/55
[2016-08-28] MEDS ORDERED: BUMETANIDE 1 MG TAB PO ONE (09:45)
[2016-08-28] MEDS: RIFAXIMIN 550 MG TAB PO SCH ×2 (10:00→21:23)
[2016-08-28] MEDS: CARVEDILOL 3.125 MG TAB PO SCH (10:00)
[2016-08-28] MEDS: METOLAZONE 5 MG TAB PO SCH (10:00)
[2016-08-28] MEDS: SERTRALINE HCL 50 MG TAB PO SCH (10:39)
[2016-08-28] MEDS: SPIRONOLACTONE 25 MG TAB PO SCH (10:39)
[2016-08-28] MEDS: PANTOPRAZOLE 40 MG TAB PO SCH ×2 (10:40→21:23)
[2016-08-28] MEDS: DIGOXIN 0.25 MG TAB PO SCH (10:41)
[2016-08-28] MEDS: LEVOFLOXACIN 250 MG TAB PO SCH (10:42)
[2016-08-28] MEDS: MULTIPLE VITAMINS W/ MINERALS TAB PO SCH (10:44)
[2016-08-28] MEDS: FLECAINIDE ACETATE 50 MG TAB PO SCH ×2 (10:44→21:23)
[2016-08-28] MEDS: POTASSIUM CHL 20 Meq TABLET PO SCH ×2 (10:47→21:23)
[2016-08-28 12:24] VITALS: BP 146/89
[2016-08-28 16:04] VITALS: BP 131/76
[2016-08-28] MEDS: BUMETANIDE 1 MG TAB PO SCH (18:00)
[2016-08-28] MEDS: ATORVASTATIN 20 MG TAB PO SCH (21:23)
[2016-08-28 21:30] VITALS: BP 105/60
[2016-08-29] MEDS: IPRATROPIUM BROM 0.5 MG/2.5ML INH SOL NEB SCH ×3 (00:46→11:57)
[2016-08-29] MEDS: ALBUTEROL SULF 2.5 MG/0.5ML(0.5%) NEB SOLN NEB SCH ×3 (00:46→11:57)
[2016-08-29] MEDS: ZOLPIDEM TARTRATE 5 MG TAB PO PRN (01:18)
[2016-08-29] MEDS: MORPHINE SULFATE 4 MG/ML SYRG IV PRN ×2 (03:53→10:12)
[2016-08-29 05:00] VITALS: BP 106/56
[2016-08-29] MEDS: LACTULOSE 20Gm/30ML SOLN PO SCH (06:14)
[2016-08-29] MEDS: BUMETANIDE 1 MG TAB PO SCH (06:15)
[2016-08-29] MEDS: traMADol HCL 50 MG TAB PO PRN (06:16)
[2016-08-29 06:20] LABS: Calcium 7.4 mg/dL (8.5-10.1); Potassium 3.9 mmol/L (3.5-5.1)
[2016-08-29 06:23] LABS: BUN/Creatinine Ratio 6.8
[2016-08-29 09:00] VITALS: BP 99/48
[2016-08-29] MEDS ORDERED: METO5TAB56 PO (09:39)
[2016-08-29] MEDS: FLECAINIDE ACETATE 50 MG TAB PO SCH (10:00)
[2016-08-29] MEDS: DIGOXIN 0.25 MG TAB PO SCH (10:00)
[2016-08-29] MEDS: SPIRONOLACTONE 25 MG TAB PO SCH (10:00)
[2016-08-29] MEDS: LEVOFLOXACIN 250 MG TAB PO SCH (10:00)
[2016-08-29] MEDS: SERTRALINE HCL 50 MG TAB PO SCH (10:00)
[2016-08-29] MEDS: METOLAZONE 5 MG TAB PO SCH (10:00)
[2016-08-29] MEDS: RIFAXIMIN 550 MG TAB PO SCH (10:00)
[2016-08-29] MEDS: MULTIPLE VITAMINS W/ MINERALS TAB PO SCH (10:00)
[2016-08-29] MEDS: POTASSIUM CHL 20 Meq TABLET PO SCH (10:00)
[2016-08-29] MEDS: PANTOPRAZOLE 40 MG TAB PO SCH (10:00)
[2016-08-29 12:02] VITALS: BP 100/41
== END 2016-08-29 13:10 | disposition home or self-care (01) | DRG 871 ==
LOC: EDBD 09:19 → ER 09:19 → TELE 09:20 → DOU IN ICU 08-19 04:14 → TELE-EAST 08-22 16:33 → EAST 08-26 11:51
PROVIDERS: ADMIT Internal Medicine; ATTEND Internal Medicine
PROC: 5A09357 Assistance with Respiratory Ventilation, Less than 24 Consecutive Hours, Continuous Positive Airway Pressure (ICD-10-PCS; principal; 2016-08-17)
PROC: 30233N1 Transfusion of Nonautologous Red Blood Cells into Peripheral Vein, Percutaneous Approach (ICD-10-PCS; 2016-08-18)
DX: A41.9 Sepsis, unspecified organism (principal); I21.4 Non-ST elevation (NSTEMI) myocardial infarction; J18.9 Pneumonia, unspecified organism; I50.33 Acute on chronic diastolic (congestive) heart failure; E43 Unspecified severe protein-calorie malnutrition; N17.0 Acute kidney failure with tubular necrosis; G92 Toxic encephalopathy; J96.01 Acute respiratory failure with hypoxia; J18.1 Lobar pneumonia, unspecified organism; J44.0 Chronic obstructive pulmonary disease with (acute) lower respiratory infection; D62 Acute posthemorrhagic anemia; D68.9 Coagulation defect, unspecified; I42.9 Cardiomyopathy, unspecified; K92.2 Gastrointestinal hemorrhage, unspecified; L03.116 Cellulitis of left lower limb; L03.115 Cellulitis of right lower limb; I48.0 Paroxysmal atrial fibrillation; N18.3 Chronic kidney disease, stage 3 (moderate); I87.2 Venous insufficiency (chronic) (peripheral); E66.9 Obesity, unspecified; E83.42 Hypomagnesemia; D63.8 Anemia in other chronic diseases classified elsewhere; E83.51 Hypocalcemia; D69.59 Other secondary thrombocytopenia; E87.6 Hypokalemia; T36.0X5A Adverse effect of penicillins, initial encounter; K70.30 Alcoholic cirrhosis of liver without ascites; Z82.3 Family history of stroke; Z82.49 Family history of ischemic heart disease and other diseases of the circulatory system; Z98.84 Bariatric surgery status; Z90.49 Acquired absence of other specified parts of digestive tract; I25.2 Old myocardial infarction; Z68.36 Body mass index [BMI] 36.0-36.9, adult; Z83.6 Family history of other diseases of the respiratory system; Z71.89 Other specified counseling
CPT/HCPCS: 36415; 36600; 51702; 71010; 71020; 76775; 80048; 80053; 80061; 80162; 80307; 82040; 82140; 82270; 82378; 82550; 82570; 82805; 83605; 83735; 83880; 84156; 84300; 84443; 84484; 85007; 85014; 85018; 85025; 85027; 85045; 85379; 85610; 85730; 86850; 86900; 86901; 86920; 87040; 87081; 87086; 87493; 93005; 93306; 93970; 94640; 94660; 96365; 96375; 97116; 97163; 97530; 99291; J0696; J1956; J2405; J3490